=== PATIENT | male | born 1975 | race Caucasian/White ===

== ENCOUNTER 2017-01-04 17:47 | Emergency (ER) | payer MEDICARE ==
[2017-01-04 18:17] VITALS: BP 125/79
--- NOTE | 2017-01-04 19:03 | EDM.PDOC ---
ED HPI GENERAL MEDICAL PROBLEM - General Chief Complaint: Eye Problems Stated Complaint: SOMETHING IN LEFT EYE Time Seen by Provider: 01/04/17 18:58 Source of Information: Reports: Patient History Limitations: Reports: No Limitations - History of Present Illness INITIAL COMMENTS - FREE TEXT/NARRATIVE: History of present illness: [41-year-old male presenting with foreign body sensation in his left eye. 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 ] Review of systems: As per history of present illness and below otherwise all systems reviewed and negative. Past medical history: As per history of present illness and as reviewed below otherwise noncontributory. Surgical history: As per history of present illness and as reviewed below otherwise noncontributory. Social history: No reported history of drug or alcohol abuse. Family history: As per history of present illness and as reviewed below otherwise noncontributory. Physical exam: HEENT: Atraumatic, normocephalic, examination of his left cornea does reveal a foreign body at about the 8 o'clock position between the midpoint of the pupil and the limbus. It appeared metallic. His pupils equal round and reacting to light except movements are intact Neuro: Awake, alert, oriented. Exam nonfocal. Diagnostics: [] Therapeutics: [After tetracaine was applied to the eye I used an 18-gauge needle to flip out the metallic foreign body and a bur device to clean up the rust ring. He tolerated the procedure well.] Impression: [Foreign body left eye] Plan: [In 2 days if he is not completely better i.e. if he is having visual disturbance or pain he is to follow-up with an eye doctor. He is provided with [place] eye drops for 3 days and [place] for pain 5/325 #6] Definitive disposition and diagnosis as appropriate pending reevaluation and review of above. left eye Pain Score (Numeric/FACES): 4 - Related Data Allergies Allergy/AdvReac Type Severity Reaction Status Date / Time No Known Allergies Allergy Verified 01/04/17 18:11 Home Meds: Home Meds NK [No Known Home Meds] 01/04/17 [History] Past Medical History - Past Health History Medical/Surgical History: Denies Medical/Surgical History Musculoskeletal History: Reports: Back Pain, Chronic - Past Surgical History Musculoskeletal Surgical History: Reports: Shoulder Surgery, Other (See Below) Other Musculoskeletal Surgeries/Procedures:: hand surgery Social & Family History - Tobacco Use Smoking Status *Q: Current Every Day Smoker Years of Tobacco use: 20 Packs/Tins Daily: 1 - Recreational Drug Use Recreational Drug Use: No ED ROS GENERAL - Review of Systems Review Of Systems: ROS reveals no pertinent complaints other than HPI. ED EXAM GENERAL W FULL EYE - Physical Exam Exam: See Below Course - Vital Signs Last Recorded V/S: Last Vital Signs Temp 36.8 C 01/04/17 18:12 Pulse 77 01/04/17 18:12 Resp 12 01/04/17 18:12 BP 125/79 01/04/17 18:12 Pulse Ox 96 01/04/17 18:12 Departure - Departure Time of Disposition: 19:04 Disposition: Home, Self-Care 01 Condition: Good Clinical Impression: Foreign body of left eye Qualifiers: Encounter type: initial encounter Qualified Code(s): T15.92XA - Foreign body on external eye, part unspecified, left eye, initial encounter - Discharge Information Forms: ED Department Discharge Additional Instructions: Please follow-up with an eye doctor in 2 days if you are not completely better. You should be seeing fine and have no pain.
== END 2017-01-04 19:18 | disposition home or self-care (01) ==
LOC: JP.ED 17:47
DX: T15.02XA Foreign body in cornea, left eye, initial encounter (principal)
CPT/HCPCS: 65220; 99282-25; 99283